=== PATIENT | female | born 1995 | race African-American/Black ===

== ENCOUNTER 2020-02-11 09:35 | Emergency (ER) | payer OTHER ==
[2020-02-11] MEDS ORDERED: LIDOCAINE 1%/EPINEPHRINE INJ 20 ML VIAL INJ ONE (10:10)
--- NOTE | 2020-02-11 10:12 | ER Document Report ---
ED Medical Screen (RME) - General Chief Complaint: Laceration Stated Complaint: ARM LACERATION Time Seen by Provider: 02/11/20 10:09 Notes: HPI: 24-year-old female who is not up-to-date on her tetanus vaccination presenting for laceration to the left volar forearm. Patient was cutting a short with a knife and lacerated the forearm. Denies numbness or tingling in the fingertips. States she can fully open and close the fingers of the left hand. Denies other injuries or complaints PHYSICAL EXAMINATION: 3.5 cm linear superficial laceration to the volar left mid forearm with no visible underlying structural injury. Patient is able to fully open and close the right hand, flex and extend the fingers and abduct the thumb. She is able to fully flex and extend the left wrist I have greeted and performed a rapid initial assessment of this patient. A comprehensive ED assessment and evaluation of the patient, analysis of test results and completion of medical decision making process will be conducted by an additional ED providers. TRAVEL OUTSIDE OF THE [place] IN LAST 30 DAYS: No - Related Data Allergies/Adverse Reactions: No Known Allergies Allergy (Unverified 02/11/20 10:05) Home Medications: control Past Medical History - Social History Chew tobacco use (# tins/day): No Frequency of alcohol use: Occasional Drug Abuse: None - Immunizations Hx Diphtheria, Pertussis, Tetanus Vaccination: Yes Physical Exam - Vital signs Vitals: Temp Pulse Resp BP Pulse Ox 98.3 F 91 16 124/83 100 02/11/20 09:41 02/11/20 09:41 02/11/20 09:41 02/11/20 09:41 02/11/20 09:41 Course - Vital Signs Vital signs: Temp Pulse Resp BP Pulse Ox 98.3 F 91 16 124/83 100 02/11/20 10:06 02/11/20 09:41 02/11/20 09:41 02/11/20 09:41 02/11/20 09:41
[2020-02-11] MEDS ORDERED: LIDOCAINE 1% INJ-PF (10 MG/ML) 30 ML SDV INJ ONE (10:31)
[2020-02-11] MEDS ORDERED: DIPH/PERTUSS(ACELL)/TETANUS VAC/PF 0.5 ML SYR (>=10YO) IM ONE (10:33)
--- NOTE | 2020-02-11 10:39 | ER Document Report ---
ED Wound - General Chief Complaint: Laceration Stated Complaint: ARM LACERATION Time Seen by Provider: 02/11/20 10:09 Primary Care Provider: JEAN LAM MD [Primary Care Provider] - Follow up as needed Mode of Arrival: Ambulatory Information source: Patient Notes: 24-year-old female no previous medical problems presents emergency room with with a laceration to her left forearm. Patient states she was trying to cut the design into her shirt without removing it and accidentally cut her forearm. Bleeding is controlled. No other injuries. Unknown months tetanus shot. Patient is right-handed. TRAVEL OUTSIDE OF THE [place] IN LAST 30 DAYS: No - Related Data Allergies/Adverse Reactions: No Known Allergies Allergy (Unverified 02/11/20 10:05) Home Medications: control Past Medical History - General Information source: Patient - Social History Smoking Status: Never Smoker Chew tobacco use (# tins/day): No Frequency of alcohol use: Occasional Drug Abuse: None Family History: Reviewed & Not Pertinent Patient has homicidal ideation: No Pulmonary Medical History: Reports: Hx Asthma - Immunizations Immunizations up to date: No Hx Diphtheria, Pertussis, Tetanus Vaccination: Yes Review of Systems - Review of Systems Constitutional: No symptoms reported Cardiovascular: No symptoms reported Respiratory: No symptoms reported Musculoskeletal: No symptoms reported Skin: Other - Laceration Neurological/Psychological: No symptoms reported -: Yes All other systems reviewed and negative Physical Exam - Vital signs Vitals: Temp Pulse Resp BP Pulse Ox 98.3 F 91 16 124/83 100 02/11/20 09:41 02/11/20 09:41 02/11/20 09:41 02/11/20 09:41 02/11/20 09:41 - General General appearance: Appears well, Alert In distress: Mild - HEENT Head: Normocephalic, Atraumatic Eyes: Normal Pupils: PERRL - Respiratory Respiratory status: No respiratory distress Chest status: Nontender Breath sounds: Normal Chest palpation: Normal - Cardiovascular Rhythm: Regular Heart sounds: Normal auscultation Murmur: No - Extremities Forearm: Laceration - 4 cm laceration to the left dorsal forearm. Bleeding is controlled. - Neurological Neuro grossly intact: Yes Cognition: Normal Orientation: AAOx4 Dyer Coma Scale Eye Opening: Spontaneous Dyer Coma Scale Verbal: Oriented Dyer Coma Scale Motor: Obeys Commands Melissa Coma Scale Total: 15 Speech: Normal Motor strength normal: LUE, RUE, LLE, RLE Sensory: Normal Notes: Positive left radial pulse. Capillary refill less than 3 seconds. - Skin Skin Temperature: Warm Skin Moisture: Dry Skin Color: Normal Skin irregularity: Laceration - 4 cm laceration to the left dorsal forearm. Bleeding is controlled. Location of irregularity: Extremities Character of irregularity: Linear Irregularity with: negative: Swelling, Tenderness, Warmth Course - Re-evaluation Re-evalutation: 02/11/20 11:03 Wound was cleansed and sutured as documented. Dressing applied by nursing staff as documented. Patient was counseled on proper wound care. Sutures out 8 days. Given strict return to the emergency room guidelines. Return for any new or worsening symptoms. All questions were answered. Patient verbalized understanding agrees with plan of care. - Vital Signs Vital signs: Temp Pulse Resp BP Pulse Ox 98.3 F 91 16 124/83 100 02/11/20 10:06 02/11/20 09:41 02/11/20 09:41 02/11/20 09:41 02/11/20 09:41 Procedures - Laceration/Wound Repair Left Lower Arm Time completed: 11:00 Wound length (cm): 4 Wound's Depth, Shape: Superficial, Linear Laceration pre-procedure: Sterile PPE donned, Sterile drapes applied, Shur-Clens applied Anesthetic type: 1% Lidocaine Volume Anesthetic (mLs): 4 Wound explored: Clean Irrigated w/ Saline (mLs): 20 Wound Repaired With: Sutures Suture Size/Type: 4:0, Ethilon Number of Sutures: 8 Layer Closure?: No Post-procedure wound care: Sterile dressing applied Post-procedure NV exam normal: Yes Complications: No Adult Front & Back picture: 1 - 4 cm laceration Discharge - Discharge Clinical Impression: Laceration of left forearm Condition: Stable Disposition: HOME, SELF-CARE Instructions: Tetanus Immunization Given ([facility]), Laceration Care ([facility]) Additional Instructions: Keep wound clean and dry. You can remove the dressing in 24 hours. Tylenol and/or Motrin as needed for pain. Sutures out in 8 days. Return for any new or worsening symptoms. Referrals: JEAN LAM MD [Primary Care Provider] - Follow up as needed
[2020-02-11 11:18] VITALS: BP 112/71
== END 2020-02-11 11:18 | disposition home or self-care (01) ==
LOC: ER 09:35
DX: S51.812A Laceration without foreign body of left forearm, initial encounter (principal); W26.0XXA Contact with knife, initial encounter; Y93.89 Activity, other specified; J45.909 Unspecified asthma, uncomplicated; Z23 Encounter for immunization; Z79.3 Long term (current) use of hormonal contraceptives
CPT/HCPCS: 90715; 99282; J3490